=== PATIENT | female | born 1960 ===

== ENCOUNTER 2024-03-29 12:05 | Day surgery (SDC) | payer MEDICARE ==
[~2024-03-29 12:05] MED LIST: Metoclopramide 10 MG/2 ML SDV IV PRN
[2024-03-29] MEDS: Sodium Chloride 0.9% 1,000 ML IV SCH (12:52)
[2024-03-29] MEDS ORDERED: Propofol 1,000 MG/100 ML SDV ONE (15:00)
== END 2024-03-29 16:52 | disposition home or self-care (01) ==
LOC: LB.SDS 12:05
PROVIDERS: ATTEND Surgery
DX: Z12.11 Encounter for screening for malignant neoplasm of colon (principal); K21.9 Gastro-esophageal reflux disease without esophagitis; I10 Essential (primary) hypertension; Z79.899 Other long term (current) drug therapy
CPT/HCPCS: J2704; J7030